=== PATIENT | male | born 1975 | race Caucasian/White ===

== ENCOUNTER 2016-07-18 23:45 | Emergency (ER) | payer MEDICAID ==
[~2016-07-18] VITALS: Ht 177.8 cm; Wt 79.0 kg
[2016-07-18 23:49] VITALS: Ht 177.8 cm; Wt 79.0 kg
[2016-07-19] MEDS ORDERED: HYDROCODONE/APAP (10/325) TAB PO ONE (02:30)
[2016-07-19] MEDS ORDERED: ACETAMINOPHEN 325 MG TAB PO ONE (02:30)
[2016-07-19] MEDS ORDERED: ACET325T45 PO (03:13)
[2016-07-19 03:48] VITALS: BP 132/77; PULSE 61; RESP 20; TEMP 97.7
--- NOTE | 2016-07-22 17:45 | ERA ---
ER Documentation Chief Complaint Date/Time DATE: 07/22/16 TIME: 17:41 Chief Complaint sciatic back pain HPI A delightful man with a chief complaint of back pain. History of sciatica. Patient speaks Farsi. Patient's cousin later came and translated. Patient [place] been [place] meds in [place] country and wants refills here. There is an extensive list of medication all including narcotics and benzos. Patient denies any change in his pain. Patient denies any loss of bowel or bladder control. Patient denies any new or worsening symptoms besides that he cannot feel the pain since he is not on his medications. Patient has no other complaints at this time. There are no other associated manifestations. ROS All systems reviewed and are negative except as per history of present illness. Medications Home Meds Active Scripts Acetaminophen* (Acetaminophen*) 325 Mg Tablet, 325 MG PO Q4H Y for PAIN AND OR ELEVATED TEMP, #30 TAB Prov:ROSANGELA UNDERWOOD PA-C 07/19/16 Allergies Allergies: Coded Allergies: naproxen (Verified Allergy, Unknown, 07/18/16) PMhx/Soc Medical and Surgical Hx: pt denies Surgical Hx History of Surgery: No Anesthesia Reaction: No Hx Neurological Disorder: No Hx Respiratory Disorders: No Hx Cardiac Disorders: No Hx Psychiatric Problems: No Hx Miscellaneous Medical Probl: Yes (Sciatica) Hx Alcohol Use: No Hx Substance Use: Yes Hx Tobacco Use: No Smoking Status: Never smoker Physical Exam Vitals Vital Signs Date Time Temp Pulse Resp B/P Pulse Ox O2 Delivery O2 Flow Rate FiO2 07/19/16 03:48 97.7 61 20 132/77 100 Room Air 07/18/16 23:49 98.3 78 20 140/90 98 Physical Exam Const: Distress 41-year-old male. Head: Atraumatic Eyes: Normal Conjunctiva ENT: Normal External Ears, Nose and Mouth. Neck: Full range of motion..~ No meningismus. Resp: Clear to auscultation bilaterally Cardio: Regular rate and rhythm, no murmurs Abd: Soft, non tender, non distended. Normal bowel sounds Skin: No petechiae or rashes Back: No midline or flank tenderness Ext: No cyanosis, or edema Neur: Awake and alert Psych: Normal Mood and Affect Results 24 hrs Current Medications Medications (Trade) Dose Ordered Sig/Beatriz Route PRN Reason Start Time Stop Time Status Last Admin Dose Admin Acetaminophen (Tylenol Tab) 325 mg ONCE ONCE PO 07/19/16 02:30 07/19/16 02:30 DC Acetaminophen/ Hydrocodone Bitart ([place] ()) 1 tab ONCE ONCE PO 07/19/16 02:30 07/19/16 02:31 DC 07/19/16 02:37 Procedures/MDM Patient's 41-year-old male with a chronic history of sciatica when he refill medications. Patient has prove of medication prescriptions but is from another country and a foreign language. List is inclusive of many narcotics and benzos. I told the patient that I cannot refill those here but to be seen by a PCP for referral to pain/neuro/biotech production specialist. Pain is verbally agreed that he understands the assessment and plan. I will go ahead and prescribe the patient to of his medications that are not controlled substances as well as a shot of Toradol and the ED. Patient's condition has improved slightly since arrival will be discharged at this time. I have spoken with my attending and he agrees with the assessment and plan. Departure Diagnosis: Primary Impression: Back pain Qualified Code: M54.42 - Chronic left-sided low back pain with left-sided sciatica Condition: Stable Patient Instructions: Back Pain W/ Sciatica Additional Instructions: Follow-up with primary care provider in the next 1-3 days for further evaluation and possible referral to either an orthopedic or plate painter. If symptoms change or worsen return to the emergency department immediately. ROSANGELA UNDERWOOD PA-C July 22, 2016 17:45
== END 2016-07-19 03:50 | disposition home or self-care (01) ==
LOC: FTE 23:45
DX: M54.42 Lumbago with sciatica, left side (principal)